=== PATIENT | female | born 1985 | race Caucasian/White ===

== ENCOUNTER 2021-11-10 16:16 | Emergency (ER) | payer MEDICAID ==
[~2021-11-10] VITALS: Ht 162.6 cm; Wt 66.2 kg
[2021-11-10 16:31] VITALS: BP 132/77
[2021-11-10] MEDS ORDERED: KETOROLAC 30 MG/ML VIAL IM ONE (17:45)
--- NOTE | 2021-11-10 17:53 | NUR ---
36Y FEMALE BIB SELF DUE TO R HAND PAIN SINCE 10/29/21. PER PATIENT SHE HIT HER HAND ON WALL. R HAND IS SWOLLEN AT THIS TIME. PT HAS FULL SENSATION IN HER HAND, BUT LIMITED ROM PMH: DENIES NKA
--- NOTE | 2021-11-10 17:56 | NUR ---
PT PROVIDED WITH PAIN MEDICATION AND MOVED TO CHAIR C TO PROVIDE SPLINT
[2021-11-10] MEDS ORDERED: IBUP-2213 PO (18:07)
[2021-11-10 18:12] VITALS: BP 121/74
--- NOTE | 2021-11-10 18:15 | NUR ---
placed an ulnar gutter splint on pt's right hand. KAUSHAL Hernandez made aware.
--- NOTE | 2021-11-10 18:17 | NUR ---
KAUSHAL Hernandez approved of splint placement. CMS intact prior and after splint was placed.
== END 2021-11-10 18:13 | disposition home or self-care (01) ==
LOC: MED 16:16
DX: S62.396A Other fracture of fifth metacarpal bone, right hand, initial encounter for closed fracture (principal); W22.8XXA Striking against or struck by other objects, initial encounter; Y92.89 Other specified places as the place of occurrence of the external cause; Y93.89 Activity, other specified; Y99.8 Other external cause status
CPT/HCPCS: 29515; 73130; 96372; 99283; J1885